=== PATIENT | female | born 1970 | race Caucasian/White ===

== ENCOUNTER 2017-02-07 05:51 | Day surgery (SDC) | payer OTHER ==
[2017-02-06 15:31] VITALS: BMI 29.0
--- NOTE | 2017-02-07 06:59 | HP ---
Admitting History and Physical - Admission History of Present Illness: patient is a 46 y/o female with a past medical history of bipolar disorder type 2, anxiety, thyroid CA (s/p thyroidectomy). patient presents for ect. She has received ECT in the past and her last ect was at [facility] yesterday as per patient. She reports an improvement in mood since starting ect. She does reports a recent suicide attemp in December 2016 and was hospitalized at [facility] then transferred to [place] on 01/11/17. She was discharged from [facility] on . She denies any recent illnesses and reports compliance with prescribed medications. History Source: Patient, Medical Record Limitations to Obtaining History: No Limitations - Past Medical History ...LMP: 01/23/17 - Smoking History Smoking history: Never smoked Have you smoked in the past 12 months: No - Alcohol/Substance Use Hx Alcohol Use: No - Social History Usual Living Arrangement: Yes: Alone, With Child Home Medications - Allergies Allergies/Adverse Reactions: Allergies Allergy/AdvReac Type Severity Reaction Status Date / Time Sulfa (Sulfonamide Allergy Verified 02/06/17 15:10 Antibiotics) - Home Medications Home Medications: Ambulatory Orders Clonazepam [KlonoPIN] 0.5 mg PO BID 02/06/17 Clonidine HCl 0.2 mg PO HS 02/06/17 Levothyroxine [Synthroid -] 125 mcg PO DAILY 02/06/17 Quetiapine Fumarate [Seroquel -] 200 mg PO TID 02/06/17 Venlafaxine HCl ER [Effexor Xr -] 75 mg PO DAILY 02/06/17 Family Disease History - Family Disease History Family Disease History: Other: Mother ( depressio) Review of Systems - Review of Systems Constitutional: reports: No Symptoms Eyes: reports: No Symptoms HENT: reports: No Symptoms Neck: reports: No Symptoms Cardiovascular: reports: No Symptoms Respiratory: reports: No Symptoms Gastrointestinal: reports: No Symptoms Genitourinary: reports: No Symptoms Breasts: reports: No Symptoms Reported Musculoskeletal: reports: No Symptoms Integumentary: reports: No Symptoms Neurological: reports: No Symptoms Endocrine: reports: No Symptoms Hematology/Lymphatic: reports: No Symptoms Psychiatric: reports: Depression Physical Examination Vital Signs: Vital Signs Temperature 98.3 F 02/07/17 06:36 Pulse Rate 68 02/07/17 06:36 Respiratory Rate 104 H 07/12/17 06:39 Blood Pressure O2 Sat by Pulse Oximetry (%) 96 02/07/17 06:39 Constitutional: Yes: Well Nourished, No Distress, Calm Eyes: Yes: WNL, Conjunctiva Clear, EOM Intact HENT: Yes: WNL, Atraumatic, Normocephalic Neck: Yes: WNL, Supple, Trachea Midline Cardiovascular: Yes: WNL, Regular Rate and Rhythm, S1, S2 Respiratory: Yes: WNL, Regular, CTA Bilaterally Gastrointestinal: Yes: WNL, Normal Bowel Sounds, Soft ...Rectal Exam: Yes: Deferred Renal/: Yes: WNL Musculoskeletal: Yes: WNL Extremities: Yes: WNL Edema: No Peripheral Pulses WNL: Yes Peripheral Pulses: Left Radial: 4+, Right Radial: 4+, Left Doralis Pedis: 3+, Right Dorsalis Pedis: 3+, Left Femoral: 3+, Right Femoral: 3+ Integumentary: Yes: WNL Neurological: Yes: WNL, Alert, Oriented ...Motor Strength: WNL Psychiatric: Yes: WNL, Alert, Oriented Labs: reviewed 01/13 Imaging - Results EKG: Report Reviewed, Other (nsr no ischemic changes) Assessment/Plan pt is a 46 y/o female that presents for ect, she has received ect in the past and denies any adverse reaction to anesthesia. labs and ekg reviewed pt is low risk for procedure informed consent, risks/benefits to be obtained by Dr Wagner
[2017-02-07] MEDS ORDERED: KETAMINE HCL 500 MG/10 ML VIAL ONE (08:29)
[2017-02-07 09:31] VITALS: TEMP 97.9
[2017-02-07 09:41] VITALS: BP 133/87; PULSE 74
== END 2017-02-07 09:45 | disposition home or self-care (01) ==
LOC: FECT 05:51
PROVIDERS: ATTEND Psychiatry & Neurology Psychiatry
PROC: GZB4ZZZ Other Electroconvulsive Therapy (ICD-10-PCS; principal; 2017-02-07 08:30)
DX: F33.2 Major depressive disorder, recurrent severe without psychotic features (principal)
CPT/HCPCS: 84703; 90870; 94760

== ENCOUNTER 2017-02-09 05:42 | Day surgery (SDC) | payer OTHER ==
[2017-02-09 06:54] VITALS: TEMP 98.1
[2017-02-09] MEDS ORDERED: KETAMINE HCL 500 MG/10 ML VIAL ONE (08:05)
[2017-02-09 10:02] VITALS: PULSE 82
[2017-02-09 10:03] VITALS: BP 124/74
== END 2017-02-09 09:55 | disposition home or self-care (01) ==
LOC: FECT 05:42
PROVIDERS: ATTEND Psychiatry & Neurology Psychiatry
PROC: GZB4ZZZ Other Electroconvulsive Therapy (ICD-10-PCS; principal; 2017-02-09 08:00)
DX: F33.2 Major depressive disorder, recurrent severe without psychotic features (principal)
CPT/HCPCS: 90870; 94760

== ENCOUNTER 2017-02-12 06:00 | Day surgery (SDC) | payer OTHER ==
[2017-02-07 15:19] VITALS: BMI 29.0
[2017-02-12] MEDS ORDERED: KETAMINE HCL 500 MG/10 ML VIAL ONE (07:44)
[2017-02-12 09:23] VITALS: PULSE 86; TEMP 98
[2017-02-12 09:29] VITALS: BP 130/89
== END 2017-02-12 09:30 | disposition home or self-care (01) ==
LOC: FECT 06:00
PROVIDERS: ATTEND Psychiatry & Neurology Psychiatry
PROC: GZB4ZZZ Other Electroconvulsive Therapy (ICD-10-PCS; principal; 2017-02-12 07:45)
DX: F33.2 Major depressive disorder, recurrent severe without psychotic features (principal)
CPT/HCPCS: 84703; 90870; 94760

== ENCOUNTER 2017-02-14 05:42 | Day surgery (SDC) | payer OTHER ==
[2017-02-09 11:09] VITALS: BMI 29.0
[2017-02-14] MEDS ORDERED: LACTATED RINGERS SOLUTION 1,000 ML IV SCH (07:15)
[2017-02-14] MEDS ORDERED: KETAMINE HCL 500 MG/10 ML VIAL ONE (07:49)
[2017-02-14 08:53] VITALS: PULSE 79; TEMP 98.1
[2017-02-14 09:21] VITALS: BP 121/84
== END 2017-02-14 09:20 | disposition home or self-care (01) ==
LOC: FECT 05:42
PROVIDERS: ATTEND Psychiatry & Neurology Psychiatry
PROC: GZB4ZZZ Other Electroconvulsive Therapy (ICD-10-PCS; principal; 2017-02-14 07:45)
DX: F33.2 Major depressive disorder, recurrent severe without psychotic features (principal)
CPT/HCPCS: 90870; 94760

== ENCOUNTER 2017-02-16 05:43 | Day surgery (SDC) | payer OTHER ==
[2017-02-14 10:11] VITALS: BMI 29.0
[2017-02-16] MEDS ORDERED: KETAMINE HCL 500 MG/10 ML VIAL ONE (07:33)
[2017-02-16] MEDS ORDERED: ACETAMINOPHEN 325 MG TABLET (FP) PO PRN (08:02)
[2017-02-16] MEDS ORDERED: ONDANSETRON 4 MG/2 ML VIAL IVPUSH PRN (08:02)
[2017-02-16] MEDS ORDERED: LACTATED RINGERS SOLUTION 1,000 ML IV SCH (08:15)
[2017-02-16 09:04] VITALS: TEMP 98.1
[2017-02-16 09:34] VITALS: BP 120/70; PULSE 81
== END 2017-02-16 09:25 | disposition home or self-care (01) ==
LOC: FECT 05:43
PROVIDERS: ATTEND Psychiatry & Neurology Psychiatry
PROC: GZB4ZZZ Other Electroconvulsive Therapy (ICD-10-PCS; principal; 2017-02-16 07:45)
DX: F33.2 Major depressive disorder, recurrent severe without psychotic features (principal)
CPT/HCPCS: 84703; 90870; 94760

== ENCOUNTER → 2017-02-20 | Day surgery (SDC) | payer OTHER ==
[2017-02-14 10:15] VITALS: BMI 29.0
[~2017-02-20] MED LIST: KETAMINE HCL 500 MG/10 ML VIAL ONE; LACTATED RINGERS SOLUTION 1,000 ML IV SCH
[2017-02-20 08:05] VITALS: TEMP 97.9
[2017-02-20 10:47] VITALS: BP 139/89; PULSE 81
== END | disposition home or self-care (01) ==
LOC: FECT 05:50
PROVIDERS: ATTEND Psychiatry & Neurology Psychiatry
PROC: GZB4ZZZ Other Electroconvulsive Therapy (ICD-10-PCS; principal; 2017-02-20 08:30)
DX: F33.2 Major depressive disorder, recurrent severe without psychotic features (principal)
CPT/HCPCS: 84703; 90870; 94760

== ENCOUNTER 2017-03-06 05:45 | Day surgery (SDC) | payer OTHER ==
[2017-02-15 12:32] VITALS: BMI 29.0
[2017-03-06 09:50] VITALS: BP 128/78; PULSE 76; TEMP 98
== END 2017-03-06 09:40 | disposition home or self-care (01) ==
LOC: FECT 05:45
PROVIDERS: ATTEND Psychiatry & Neurology Psychiatry
PROC: GZB4ZZZ Other Electroconvulsive Therapy (ICD-10-PCS; principal; 2017-03-06 08:30)
DX: F33.2 Major depressive disorder, recurrent severe without psychotic features (principal)
CPT/HCPCS: 84703; 90870; 94760

== ENCOUNTER 2017-04-16 05:44 | Day surgery (SDC) | payer OTHER ==
[2017-04-13 11:23] VITALS: BMI 29.0
--- NOTE | 2017-04-16 07:09 | HP ---
Admitting History and Physical - Admission History of Present Illness: patient is a 46 y/o female with a past medical history of bipolar disorder ( type 2), thyroid CA (s/p thyroidectomy), and anxiety. Patient presents for ect. She has received ect in the past and patient was recently admitted to [facility] [place] for 9 days due to worsening of depression and anxiety. She was recently discharged on April 14. She received ECT at [facility] her last treatment was on Thursday, April 13, 2017. Patient reports feeling well, she denies any suicidal or homicidal ideation, visual or auditory hallucinations. History Source: Patient Limitations to Obtaining History: No Limitations - Past Medical History ...LMP: 01/23/17 - Smoking History Smoking history: Never smoked Have you smoked in the past 12 months: No - Alcohol/Substance Use Hx Alcohol Use: No History of Substance Use: reports: None - Social History Usual Living Arrangement: Yes: With Spouse ADL: Independent History of Recent Travel: No Home Medications - Allergies Allergies/Adverse Reactions: Allergies Allergy/AdvReac Type Severity Reaction Status Date / Time Sulfa (Sulfonamide Allergy Intermediate RASH, Verified 03/09/17 10:50 Antibiotics) SWELLING - Home Medications Home Medications: Ambulatory Orders Clonazepam [KlonoPIN] 0.5 mg PO BID 02/06/17 Clonidine HCl 0.2 mg PO HS 02/06/17 Levothyroxine [Synthroid -] 125 mcg PO DAILY 02/06/17 Quetiapine Fumarate [Seroquel -] 200 mg PO BID #60 tab 02/14/17 Venlafaxine HCl ER [Effexor Xr -] 150 mg PO DAILY #30 cap.er.24h 02/14/17 Family Disease History - Family Disease History Family Disease History: Other: Mother Review of Systems - Review of Systems Constitutional: reports: No Symptoms Eyes: reports: No Symptoms HENT: reports: No Symptoms Neck: reports: No Symptoms Cardiovascular: reports: No Symptoms Respiratory: reports: No Symptoms Gastrointestinal: reports: No Symptoms Genitourinary: reports: No Symptoms Musculoskeletal: reports: No Symptoms Integumentary: reports: No Symptoms Neurological: reports: No Symptoms Endocrine: reports: No Symptoms Hematology/Lymphatic: reports: No Symptoms Psychiatric: reports: Anxiety Physical Examination Constitutional: Yes: Well Nourished, No Distress, Calm Eyes: Yes: WNL, Conjunctiva Clear, EOM Intact HENT: Yes: WNL, Atraumatic, Normocephalic Neck: Yes: WNL, Supple, Trachea Midline Cardiovascular: Yes: WNL, Regular Rate and Rhythm, S1, S2 Respiratory: Yes: WNL, Regular, CTA Bilaterally Gastrointestinal: Yes: WNL, Normal Bowel Sounds, Soft ...Rectal Exam: Yes: Deferred Renal/: Yes: WNL Breast(s): Yes: WNL Musculoskeletal: Yes: WNL Extremities: Yes: WNL Edema: No Peripheral Pulses WNL: Yes Peripheral Pulses: Left Radial: 4+, Right Radial: 4+, Left Doralis Pedis: 3+, Right Dorsalis Pedis: 3+, Left Femoral: 3+, Right Femoral: 3+ Integumentary: Yes: WNL Neurological: Yes: WNL, Alert, Oriented ...Motor Strength: WNL Psychiatric: Yes: WNL, Alert, Oriented Labs: reviewed 02/12 Imaging - Results EKG: Image Reviewed Assessment/Plan pt is a 46 y/o female that presents for ect, labs and ekg reviewed pt is medically optimized for procedure informed consent, risks/benefits to be obtained by Dr Wagner
[2017-04-16] MEDS ORDERED: LACTATED RINGERS SOLUTION 1,000 ML IV SCH (08:00)
[2017-04-16] MEDS ORDERED: KETAMINE HCL 500 MG/10 ML VIAL ONE (08:11)
[2017-04-16 09:37] VITALS: TEMP 98.1
[2017-04-16 10:19] VITALS: BP 134/86; PULSE 88
== END 2017-04-16 10:00 | disposition home or self-care (01) ==
LOC: FECT 05:44
PROVIDERS: ATTEND Psychiatry & Neurology Psychiatry
PROC: GZB4ZZZ Other Electroconvulsive Therapy (ICD-10-PCS; principal; 2017-04-16 08:15)
DX: F33.2 Major depressive disorder, recurrent severe without psychotic features (principal)
CPT/HCPCS: 84703; 90870; 94760

== ENCOUNTER 2017-04-19 05:40 | Day surgery (SDC) | payer OTHER ==
[2017-04-17 09:05] VITALS: BMI 29.0
[2017-04-19 06:14] VITALS: TEMP 97.8
[2017-04-19] MEDS ORDERED: KETAMINE HCL 500 MG/10 ML VIAL ONE (06:44)
[2017-04-19] MEDS ORDERED: ONDANSETRON 4 MG/2 ML VIAL IVPUSH PRN (07:08)
[2017-04-19] MEDS ORDERED: LACTATED RINGERS SOLUTION 1,000 ML IV SCH (07:15)
[2017-04-19 08:05] VITALS: BP 135/89; PULSE 89
== END 2017-04-19 08:00 | disposition home or self-care (01) ==
LOC: FECT 05:40
PROVIDERS: ATTEND Psychiatry & Neurology Psychiatry
PROC: GZB4ZZZ Other Electroconvulsive Therapy (ICD-10-PCS; principal; 2017-04-19 07:45)
DX: F33.2 Major depressive disorder, recurrent severe without psychotic features (principal)
CPT/HCPCS: 90870; 94760

== ENCOUNTER 2017-04-24 05:40 | Day surgery (SDC) | payer OTHER ==
[2017-04-17 10:32] VITALS: BMI 29.0
[2017-04-24 09:13] VITALS: TEMP 98.7
[2017-04-24 09:16] VITALS: BP 124/86; PULSE 87
== END 2017-04-24 09:10 | disposition home or self-care (01) ==
LOC: FECT 05:40
PROVIDERS: ATTEND Psychiatry & Neurology Psychiatry
PROC: GZB4ZZZ Other Electroconvulsive Therapy (ICD-10-PCS; principal; 2017-04-24 07:15)
DX: F33.2 Major depressive disorder, recurrent severe without psychotic features (principal)
CPT/HCPCS: 84703; 90870; 94760

== ENCOUNTER 2017-04-27 05:37 | Day surgery (SDC) | payer OTHER ==
[2017-04-17 10:49] VITALS: BMI 29.0
[2017-04-27 06:00] VITALS: TEMP 98
[2017-04-27] MEDS ORDERED: KETAMINE HCL 500 MG/10 ML VIAL ONE (07:01)
[2017-04-27 08:25] VITALS: BP 122/90; PULSE 86
[2017-04-27] MEDS ORDERED: ONDANSETRON 4 MG/2 ML VIAL IVPUSH PRN (08:40)
[2017-04-27] MEDS ORDERED: ACETAMINOPHEN 325 MG TABLET (FP) PO PRN (08:40)
[2017-04-27] MEDS ORDERED: LACTATED RINGERS SOLUTION 1,000 ML IV SCH (08:45)
== END 2017-04-27 08:27 | disposition home or self-care (01) ==
LOC: FECT 05:37
PROVIDERS: ATTEND Psychiatry & Neurology Psychiatry
PROC: GZB4ZZZ Other Electroconvulsive Therapy (ICD-10-PCS; principal; 2017-04-27 07:00)
DX: F33.2 Major depressive disorder, recurrent severe without psychotic features (principal)
CPT/HCPCS: 90870; 94760

== ENCOUNTER 2017-05-01 05:46 | Day surgery (SDC) | payer OTHER ==
[2017-04-30 10:51] VITALS: BMI 29.0
[2017-05-01] MEDS ORDERED: KETAMINE HCL 500 MG/10 ML VIAL ONE (06:57)
[2017-05-01 08:14] VITALS: BP 134/86; PULSE 81; TEMP 98
== END 2017-05-01 08:15 | disposition home or self-care (01) ==
LOC: FECT 05:46
PROVIDERS: ATTEND Psychiatry & Neurology Psychiatry
PROC: GZB4ZZZ Other Electroconvulsive Therapy (ICD-10-PCS; principal; 2017-05-01 08:15)
DX: F33.2 Major depressive disorder, recurrent severe without psychotic features (principal)
CPT/HCPCS: 84703; 90870; 94760

== ENCOUNTER 2017-05-03 05:42 | Day surgery (SDC) | payer OTHER ==
[2017-04-30 10:55] VITALS: BMI 29.0
[2017-05-03] MEDS ORDERED: KETAMINE HCL 500 MG/10 ML VIAL ONE (07:37)
[2017-05-03 08:58] VITALS: TEMP 98.9
[2017-05-03 09:36] VITALS: BP 122/82; PULSE 88
== END 2017-05-03 09:40 | disposition home or self-care (01) ==
LOC: FECT 05:42
PROVIDERS: ATTEND Psychiatry & Neurology Psychiatry
PROC: GZB4ZZZ Other Electroconvulsive Therapy (ICD-10-PCS; principal; 2017-05-03 08:00)
DX: F33.2 Major depressive disorder, recurrent severe without psychotic features (principal)
CPT/HCPCS: 90870; 94760

== ENCOUNTER 2017-05-08 05:37 | Day surgery (SDC) | payer OTHER ==
[2017-05-03 10:18] VITALS: BMI 29.0
[2017-05-08] MEDS ORDERED: KETAMINE HCL 500 MG/10 ML VIAL ONE (06:57)
[2017-05-08 08:04] VITALS: TEMP 98.6
[2017-05-08 08:28] VITALS: BP 135/85; PULSE 88
== END 2017-05-08 08:30 | disposition home or self-care (01) ==
LOC: FECT 05:37
PROVIDERS: ATTEND Psychiatry & Neurology Psychiatry
PROC: GZB4ZZZ Other Electroconvulsive Therapy (ICD-10-PCS; principal; 2017-05-08 07:15)
DX: F33.2 Major depressive disorder, recurrent severe without psychotic features (principal)
CPT/HCPCS: 84703; 90870; 94760

== ENCOUNTER 2017-05-11 05:48 | Day surgery (SDC) | payer OTHER ==
[2017-05-08 11:50] VITALS: BMI 29.0
[2017-05-11 06:24] VITALS: TEMP 98
[2017-05-11 08:35] VITALS: BP 133/83; PULSE 92
[2017-05-11] MEDS ORDERED: ONDANSETRON 4 MG/2 ML VIAL IVPUSH PRN (09:07)
[2017-05-11] MEDS ORDERED: ACETAMINOPHEN 325 MG TABLET (FP) PO PRN (09:07)
== END 2017-05-11 08:15 | disposition home or self-care (01) ==
LOC: FECT 05:48
PROVIDERS: ATTEND Psychiatry & Neurology Psychiatry
PROC: GZB4ZZZ Other Electroconvulsive Therapy (ICD-10-PCS; principal; 2017-05-11 08:15)
DX: F33.2 Major depressive disorder, recurrent severe without psychotic features (principal)
CPT/HCPCS: 90870; 94760

== ENCOUNTER 2017-05-15 05:42 | Day surgery (SDC) | payer OTHER ==
[2017-05-10 10:59] VITALS: BMI 29.0
[2017-05-15 06:33] VITALS: TEMP 97.9
[2017-05-15] MEDS ORDERED: KETAMINE HCL 500 MG/10 ML VIAL ONE (07:28)
[2017-05-15] MEDS ORDERED: ONDANSETRON 4 MG/2 ML VIAL IVPUSH PRN (07:46)
[2017-05-15] MEDS ORDERED: oxyCODONE HCL 5 MG TABLET PO PRN (07:46)
[2017-05-15] MEDS ORDERED: LACTATED RINGERS SOLUTION 1,000 ML IV SCH (08:00)
[2017-05-15 08:55] VITALS: BP 135/89; PULSE 92
--- NOTE | 2017-05-18 07:07 | HP ---
CHIEF COMPLAINT: Here for ECT HISTORY OF PRESENT ILLNESS: patient is a 46 y/o female with a past medical history of bipolar disorder ( type 2), thyroid CA (s/p thyroidectomy), and anxiety. Patient here for ECT. Pt was admitted to [place] in March for 9 days due to worsening of depression and anxiety and was discharged on April 14. Pt denies any suicidal or homicidal ideation, visual or auditory hallucinations., cp, sob, palpitations, abdominal pain,N/V/D. History Source: Patient Recent Travel: No PAST MEDICAL HISTORY: see above PAST SURGICAL HISTORY: thyroid CA (s/p thyroidectomy) Social History: Smoking:No Alcohol:No Drugs: No Family History: Allergies Sulfa (Sulfonamide Antibiotics) Allergy (Intermediate, Verified 05/18/17 06:55) RASH, SWELLING HOME MEDICATIONS: Home Medications Medication Instructions Recorded Clonidine HCl 0.2 mg PO HS 02/06/17 Levothyroxine [Synthroid -] 125 mcg PO DAILY 02/06/17 Clonazepam [Klonopin] 1 mg PO BID 04/16/17 Quetiapine Fumarate [Seroquel -] 200 mg PO TID 04/16/17 Venlafaxine HCl ER [Effexor Xr -] 300 mg PO DAILY 04/16/17 Atorvastatin Ca [Lipitor] 10 mg PO HS 05/08/17 REVIEW OF SYSTEMS CONSTITUTIONAL: Absent: fever, chills, diaphoresis, generalized weakness, malaise, loss of appetite, weight change HEENT: Absent: rhinorrhea, nasal congestion, throat pain, throat swelling, difficulty swallowing, mouth swelling, ear pain, eye pain, visual changes CARDIOVASCULAR: Absent: chest pain, syncope, palpitations, irregular heart rate, lightheadedness , peripheral edema RESPIRATORY: Absent: cough, shortness of breath, dyspnea with exertion, orthopnea, wheezing, stridor, hemoptysis GASTROINTESTINAL: Absent: abdominal pain, abdominal distension, nausea, vomiting, diarrhea, constipation, melena, hematochezia GENITOURINARY: Absent: dysuria, frequency, urgency, hesitancy, hematuria, flank pain, genital pain MUSCULOSKELETAL: Absent: myalgia, arthralgia, joint swelling, back pain, neck pain SKIN: Absent: rash, itching, pallor HEMATOLOGIC/IMMUNOLOGIC: Absent: easy bleeding, easy bruising, lymphadenopathy, frequent infections ENDOCRINE: Absent: unexplained weight gain, unexplained weight loss, heat intolerance, cold intolerance NEUROLOGIC: Absent: headache, focal weakness or paresthesias, dizziness, unsteady gait, seizure, mental status changes, bladder or bowel incontinence PSYCHIATRIC: Absent: anxiety, depression, suicidal or homicidal ideation, hallucinations. PHYSICAL EXAMINATION GENERAL: Awake, alert, and fully oriented, in no acute distress. HEAD: Normal with no signs of trauma. EYES: Pupils equal, round and reactive to light, extraocular movements intact, sclera anicteric, conjunctiva clear. No lid lag. EARS, NOSE, THROAT: Ears normal, nares patent, oropharynx clear without exudates. Moist mucous membranes. NECK: Normal range of motion, supple without lymphadenopathy, JVD, or masses. LUNGS: Breath sounds equal, clear to auscultation bilaterally. No wheezes, and no crackles. No accessory muscle use. HEART: Regular rate and rhythm, normal S1 and S2 without murmur, rub or gallop. ABDOMEN: Soft, nontender, not distended, normoactive bowel sounds, no guarding, no rebound, no masses. No hepatomegaly or splenomegaly. MUSCULOSKELETAL: Normal range of motion at all joints. No bony deformities or tenderness. No CVA tenderness. UPPER EXTREMITIES: 2+ pulses, warm, well-perfused. No cyanosis. No clubbing. No peripheral edema. LOWER EXTREMITIES: 2+ pulses, warm, well-perfused. No calf tenderness. No peripheral edema. NEUROLOGICAL: Cranial nerves II-XII intact. Normal speech. Normal gait. PSYCHIATRIC: Cooperative. Good eye contact. Appropriate mood and affect. SKIN: Warm, dry, normal turgor, no rashes or lesions noted, normal capillary refill. ASSESSMENT/PLAN: This is a 46 year old female with hx of bipolar disorder (type 2), thyroid CA (s/p thyroidectomy), and anxiety. Patient is here for ECT. EKG and labs reviewed, unremarkable. medically optimized for ECT. Consent to be obtained by . Visit type - Emergency Visit Emergency Visit: No - New Patient This patient is new to me today: Yes Date on this admission: 05/18/17 - Critical Care Critical Care patient: No Total Critical Care Time (in minutes): 35 Critical Care Statement: The care of this patient involved high complexity decision making to prevent further life threatening deterioration of the patient 's condition and/or to evaluate & treat vital organ system(s) failure or risk of failure.
== END 2017-05-15 08:55 | disposition home or self-care (01) ==
LOC: FECT 05:42
PROVIDERS: ATTEND Psychiatry & Neurology Psychiatry
PROC: GZB4ZZZ Other Electroconvulsive Therapy (ICD-10-PCS; principal; 2017-05-15 08:00)
DX: F33.2 Major depressive disorder, recurrent severe without psychotic features (principal)
CPT/HCPCS: 84703; 90870; 94760

== ENCOUNTER 2017-05-18 05:42 | Day surgery (SDC) | payer OTHER ==
[2017-05-15 07:59] VITALS: BMI 29.0
[2017-05-18 09:29] VITALS: TEMP 97.8
[2017-05-18 09:48] VITALS: BP 131/75; PULSE 95
== END 2017-05-18 09:51 | disposition home or self-care (01) ==
LOC: FECT 05:42
PROVIDERS: ATTEND Psychiatry & Neurology Psychiatry
PROC: GZB4ZZZ Other Electroconvulsive Therapy (ICD-10-PCS; principal; 2017-05-18 07:30)
DX: F33.2 Major depressive disorder, recurrent severe without psychotic features (principal)
CPT/HCPCS: 84703; 90870; 94760

== ENCOUNTER 2017-05-23 05:42 | Day surgery (SDC) | payer OTHER ==
[2017-05-23 06:08] VITALS: TEMP 97.6
[2017-05-23] MEDS ORDERED: LACTATED RINGERS SOLUTION 1,000 ML IV SCH (08:30)
[2017-05-23 08:44] VITALS: BP 130/84; PULSE 97
== END 2017-05-23 08:45 | disposition home or self-care (01) ==
LOC: FECT 05:42
PROVIDERS: ATTEND Psychiatry & Neurology Psychiatry
PROC: GZB4ZZZ Other Electroconvulsive Therapy (ICD-10-PCS; principal; 2017-05-23 07:30)
DX: F33.2 Major depressive disorder, recurrent severe without psychotic features (principal)
CPT/HCPCS: 84703; 90870; 94760

== ENCOUNTER 2017-05-29 05:43 | Day surgery (SDC) | payer OTHER ==
[2017-05-28 07:26] VITALS: BMI 29.0
[2017-05-29 08:58] VITALS: TEMP 98.9
[2017-05-29 09:25] VITALS: BP 139/89; PULSE 88
== END 2017-05-29 09:25 | disposition home or self-care (01) ==
LOC: FECT 05:43
PROVIDERS: ATTEND Psychiatry & Neurology Psychiatry
PROC: GZB4ZZZ Other Electroconvulsive Therapy (ICD-10-PCS; principal; 2017-05-29 07:45)
DX: F33.2 Major depressive disorder, recurrent severe without psychotic features (principal)
CPT/HCPCS: 84703; 90870; 94760

== ENCOUNTER 2017-06-12 05:42 | Day surgery (SDC) | payer OTHER ==
[2017-06-12 06:35] VITALS: BMI 29.0
[2017-06-12] MEDS ORDERED: KETAMINE HCL 500 MG/10 ML VIAL ONE (07:25)
[2017-06-12 08:25] VITALS: TEMP 97.9
[2017-06-12 08:49] VITALS: BP 137/87; PULSE 93
== END 2017-06-12 09:00 | disposition home or self-care (01) ==
LOC: FECT 05:42
PROVIDERS: ATTEND Psychiatry & Neurology Psychiatry
PROC: GZB4ZZZ Other Electroconvulsive Therapy (ICD-10-PCS; principal; 2017-06-12 08:00)
DX: F33.2 Major depressive disorder, recurrent severe without psychotic features (principal)
CPT/HCPCS: 84703; 90870; 94760

== ENCOUNTER 2017-06-19 05:43 | Day surgery (SDC) | payer OTHER ==
[2017-06-19 07:00] VITALS: BMI 29.9
--- NOTE | 2017-06-19 07:13 | HP ---
Admitting History and Physical - Admission History of Present Illness: patient is a 46 y/o female with a past medical history of hyperlipidemia, bipolar disorder (type 2), thyroid Ca (s/p thyroidectomy) and anxiety. Patient presents for ect, her last ect was 06/12/17. patient reports feeling well, she reports an improvement in depressive symptoms since starting ect. She denies any recent illnesses or hospitalizations. Patient denies any suicidal or homicidal ideation, visual or auditory hallucinations. History Source: Patient Limitations to Obtaining History: No Limitations - Past Medical History ...LMP: 05/10/17 - Smoking History Smoking history: Never smoked Have you smoked in the past 12 months: No - Alcohol/Substance Use Hx Alcohol Use: No History of Substance Use: reports: None - Social History Usual Living Arrangement: Yes: With Spouse ADL: Independent History of Recent Travel: No Home Medications - Allergies Allergies/Adverse Reactions: Allergies Allergy/AdvReac Type Severity Reaction Status Date / Time Sulfa (Sulfonamide Allergy Intermediate RASH, Verified 05/18/17 07:11 Antibiotics) SWELLING - Home Medications Home Medications: Ambulatory Orders Clonidine HCl 0.2 mg PO HS 02/06/17 Levothyroxine [Synthroid -] 125 mcg PO DAILY 02/06/17 Clonazepam [Klonopin] 1 mg PO BID 04/16/17 Quetiapine Fumarate [Seroquel -] 200 mg PO TID 04/16/17 Venlafaxine HCl ER [Effexor Xr -] 300 mg PO DAILY 04/16/17 Atorvastatin Ca [Lipitor] 10 mg PO HS 05/08/17 Family Disease History - Family Disease History Family Disease History: Other: Mother Review of Systems - Review of Systems Constitutional: reports: No Symptoms Eyes: reports: No Symptoms HENT: reports: No Symptoms Neck: reports: No Symptoms Cardiovascular: reports: No Symptoms Respiratory: reports: No Symptoms Gastrointestinal: reports: No Symptoms Genitourinary: reports: No Symptoms Musculoskeletal: reports: No Symptoms Integumentary: reports: No Symptoms Neurological: reports: No Symptoms Endocrine: reports: No Symptoms Hematology/Lymphatic: reports: No Symptoms Psychiatric: reports: No Symptoms Physical Examination Vital Signs: Vital Signs Temperature 98.1 F 06/19/17 06:50 Pulse Rate 87 06/19/17 06:50 Respiratory Rate 16 06/19/17 06:50 Blood Pressure 116/78 06/19/17 06:50 O2 Sat by Pulse Oximetry (%) 98 06/19/17 06:50 Constitutional: Yes: Well Nourished, No Distress, Calm Eyes: Yes: WNL, Conjunctiva Clear, EOM Intact HENT: Yes: WNL, Atraumatic, Normocephalic Neck: Yes: WNL, Supple, Trachea Midline Cardiovascular: Yes: WNL, Regular Rate and Rhythm Respiratory: Yes: WNL, Regular, CTA Bilaterally Gastrointestinal: Yes: WNL, Normal Bowel Sounds, Soft ...Rectal Exam: Yes: Deferred Renal/: Yes: WNL Breast(s): Yes: WNL Musculoskeletal: Yes: WNL Extremities: Yes: WNL Edema: No Peripheral Pulses WNL: Yes Peripheral Pulses: Left Radial: 4+, Right Radial: 4+, Left Doralis Pedis: 3+, Right Dorsalis Pedis: 3+, Left Femoral: 3+, Right Femoral: 3+ Integumentary: Yes: WNL Neurological: Yes: WNL, Alert, Oriented ...Motor Strength: WNL Psychiatric: Yes: WNL, Alert, Oriented Labs: reviewed 01/13 Imaging - Results EKG: Image Reviewed, Other (nsr) Assessment/Plan patient is a 46 y/o female that presents for ect, labs and ekg reviewed patient is medically optimized for procedure informed consent, risks/benefits to be obtained by Dr Wagner
[2017-06-19] MEDS ORDERED: KETAMINE HCL 500 MG/10 ML VIAL ONE (07:56)
[2017-06-19 09:10] VITALS: TEMP 97.1
[2017-06-19 09:18] VITALS: BP 127/85; PULSE 89
== END 2017-06-19 09:30 | disposition home or self-care (01) ==
LOC: FECT 05:43
PROVIDERS: ATTEND Psychiatry & Neurology Psychiatry
PROC: GZB4ZZZ Other Electroconvulsive Therapy (ICD-10-PCS; principal; 2017-06-19 07:30)
DX: F33.2 Major depressive disorder, recurrent severe without psychotic features (principal)
CPT/HCPCS: 84703; 90870; 94760

== ENCOUNTER 2017-06-26 05:43 | Day surgery (SDC) | payer OTHER ==
[2017-06-20 11:22] VITALS: BMI 29.7
[2017-06-26] MEDS ORDERED: KETAMINE HCL 500 MG/10 ML VIAL ONE (07:04)
[2017-06-26 08:15] VITALS: TEMP 98.1
[2017-06-26 08:58] VITALS: BP 140/84; PULSE 89
== END 2017-06-26 08:40 | disposition home or self-care (01) ==
LOC: FECT 05:43
PROVIDERS: ATTEND Psychiatry & Neurology Psychiatry
PROC: GZB4ZZZ Other Electroconvulsive Therapy (ICD-10-PCS; principal; 2017-06-26 08:00)
DX: F33.2 Major depressive disorder, recurrent severe without psychotic features (principal)
CPT/HCPCS: 84703; 90870; 94760

== ENCOUNTER 2017-07-03 05:41 | Day surgery (SDC) | payer OTHER ==
[2017-07-03 06:31] VITALS: BMI 29.7
[2017-07-03 08:59] VITALS: TEMP 98.7
[2017-07-03 09:00] VITALS: BP 131/89; PULSE 88
[2017-07-03] MEDS ORDERED: ONDANSETRON 4 MG/2 ML VIAL IVPUSH PRN (11:36)
[2017-07-03] MEDS ORDERED: LACTATED RINGERS SOLUTION 1,000 ML IV SCH (11:45)
== END 2017-07-03 09:00 | disposition home or self-care (01) ==
LOC: FECT 05:41
PROVIDERS: ATTEND Psychiatry & Neurology Psychiatry
PROC: GZB4ZZZ Other Electroconvulsive Therapy (ICD-10-PCS; principal; 2017-07-03 07:45)
DX: F33.2 Major depressive disorder, recurrent severe without psychotic features (principal)
CPT/HCPCS: 84703; 90870; 94760

== ENCOUNTER 2017-07-10 05:46 | Day surgery (SDC) | payer OTHER ==
[2017-07-06 11:24] VITALS: BMI 29.7
[2017-07-10 06:18] VITALS: TEMP 97.8
[2017-07-10 07:07] LABS: MCH 29.4 pg (25.7-33.7); MCHC 32.6 g/dl (32.0-36.0); MEAN CELL VOLUME 90.1 fl (80-96); MEAN PLT VOLUME 7.5 fl (7.5-11.1); PLATELET COUNT 361 K/MM3 (134-434); RDW 11.4 % (11.6-15.6); WHITE BLOOD COUNT 3.9 K/mm3 (4.0-10.8)
[2017-07-10 07:16] LABS: ANION GAP 5 (8-16); CALCIUM 9.5 mg/dl (8.4-10.2); CO2 30 mmol/L (22-28); CREATININE 1.1 mg/dl (0.6-1.3); GLUCOSE,RANDOM 99 mg/dl (74-106)
[2017-07-10 08:42] VITALS: BP 131/81; PULSE 88
--- NOTE | 2017-07-10 15:18 | EKG ---
Test Reason : Blood Pressure : / mmHG Vent. Rate : 086 BPM Atrial Rate : 086 BPM P-R Int : 160 ms QRS Dur : 080 ms QT Int : 364 ms P-R-T Axes : 068 053 051 degrees QTc Int : 435 ms NORMAL SINUS RHYTHM LOW VOLTAGE QRS BORDERLINE ECG NO PREVIOUS ECGS AVAILABLE Confirmed by MD MADELAINE, JANE ([id number]) on 07/10/2017 3:18:36 PM Referred By: Del Wagner Confirmed By:JANE BURKETT MD
== END 2017-07-10 08:40 | disposition home or self-care (01) ==
LOC: FECT 05:46
PROVIDERS: ATTEND Psychiatry & Neurology Psychiatry
PROC: GZB4ZZZ Other Electroconvulsive Therapy (ICD-10-PCS; principal; 2017-07-10 08:15)
DX: F33.2 Major depressive disorder, recurrent severe without psychotic features (principal)
CPT/HCPCS: 36415; 80048; 84703; 85027; 90870; 93005; 94760

== ENCOUNTER 2017-07-19 06:01 | Day surgery (SDC) | payer OTHER ==
[2017-07-19 06:12] VITALS: BMI 29.7
[2017-07-19] MEDS ORDERED: KETAMINE HCL 500 MG/10 ML VIAL ONE (06:54)
[2017-07-19 08:00] VITALS: TEMP 98.2
[2017-07-19 08:45] VITALS: BP 125/82; PULSE 96
[2017-07-19] MEDS ORDERED: ONDANSETRON 4 MG/2 ML VIAL IVPUSH PRN (09:32)
[2017-07-19] MEDS ORDERED: PROMETHAZINE HCL 25 MG/1 ML VIAL IVPUSH PRN (09:32)
[2017-07-19] MEDS ORDERED: LACTATED RINGERS SOLUTION 1,000 ML IV SCH (09:45)
[2017-07-19] MEDS ORDERED: PROMETHAZINE HCL 25 MG/1 ML VIAL IVPB PRN (15:00)
== END 2017-07-19 08:49 | disposition home or self-care (01) ==
LOC: FECT 06:01
PROVIDERS: ATTEND Psychiatry & Neurology Psychiatry
PROC: GZB4ZZZ Other Electroconvulsive Therapy (ICD-10-PCS; principal; 2017-07-19 07:00)
DX: F33.2 Major depressive disorder, recurrent severe without psychotic features (principal)
CPT/HCPCS: 84703; 90870; 94760

== ENCOUNTER 2017-07-26 05:46 | Day surgery (SDC) | payer OTHER ==
[2017-07-25 13:59] VITALS: BMI 29.7
--- NOTE | 2017-07-26 07:37 | HP ---
Admitting History and Physical - Admission History of Present Illness: 17patient is a 46 y/o female with a past medical history of bipolar disorder( type 2), hyperlipidemia, thyroid CA (s/p thyroidectomy) and anxiety. Patient presents for ect, her last ect was 07/19/17. She reports feeling much improvement in depressive symptoms since starting ect. She denies any changes to medications. Patient denies any recent illnesses or hospitalizations. Patient denies any suicidal or homicidal ideation, visual or auditory hallucinations. History Source: Patient Limitations to Obtaining History: No Limitations - Past Medical History Cardiovascular: Yes: Hyperlipdemia ...LMP: 05/10/17 Endocrine: Yes: Hypothyroidism - Smoking History Smoking history: Never smoked Have you smoked in the past 12 months: No - Alcohol/Substance Use Hx Alcohol Use: No History of Substance Use: reports: None - Social History Usual Living Arrangement: Yes: With Significant Other ADL: Independent History of Recent Travel: No Home Medications - Allergies Allergies/Adverse Reactions: Allergies Allergy/AdvReac Type Severity Reaction Status Date / Time Sulfa (Sulfonamide Allergy Intermediate RASH, Verified 05/18/17 07:11 Antibiotics) SWELLING - Home Medications Home Medications: Ambulatory Orders Clonidine HCl 0.2 mg PO HS 02/06/17 Levothyroxine [Synthroid -] 125 mcg PO DAILY 02/06/17 Clonazepam [Klonopin] 1 mg PO BID 04/16/17 Quetiapine Fumarate [Seroquel -] 200 mg PO TID 04/16/17 Venlafaxine HCl ER [Effexor Xr -] 300 mg PO DAILY 04/16/17 Family Disease History - Family Disease History Family Disease History: Other: Mother Review of Systems - Review of Systems Constitutional: reports: No Symptoms Eyes: reports: No Symptoms HENT: reports: No Symptoms Neck: reports: No Symptoms Cardiovascular: reports: No Symptoms Respiratory: reports: No Symptoms Gastrointestinal: reports: No Symptoms Genitourinary: reports: No Symptoms Musculoskeletal: reports: No Symptoms Integumentary: reports: No Symptoms Neurological: reports: No Symptoms Endocrine: reports: No Symptoms Hematology/Lymphatic: reports: No Symptoms Psychiatric: reports: No Symptoms Physical Examination Constitutional: Yes: Well Nourished, No Distress, Calm Eyes: Yes: WNL, Conjunctiva Clear, EOM Intact HENT: Yes: WNL, Atraumatic, Normocephalic Neck: Yes: WNL, Supple, Trachea Midline Cardiovascular: Yes: WNL, Regular Rate and Rhythm, S1, S2 Respiratory: Yes: WNL, Regular, CTA Bilaterally Gastrointestinal: Yes: WNL, Normal Bowel Sounds, Soft Renal/: Yes: WNL Breast(s): Yes: WNL Musculoskeletal: Yes: WNL Extremities: Yes: WNL Edema: No Peripheral Pulses WNL: Yes Peripheral Pulses: Left Radial: 4+, Right Radial: 4+, Left Doralis Pedis: 3+, Right Dorsalis Pedis: 3+, Left Femoral: 3+, Right Femoral: 3+ Integumentary: Yes: WNL Neurological: Yes: WNL, Alert, Oriented ...Motor Strength: WNL Psychiatric: Yes: WNL, Alert, Oriented Labs: reviwed 07/15 Imaging - Results EKG: Image Reviewed, Other (nsr) Assessment/Plan patient is a 46 y/o female that presents for ect, labs and ekg reviewed patient is medically optimized for procedure informed consent, risks/benefits to be obtained by Dr Wagner.
[2017-07-26] MEDS ORDERED: KETAMINE HCL 500 MG/10 ML VIAL ONE (07:55)
[2017-07-26 09:22] VITALS: PULSE 88; TEMP 98.1
[2017-07-26 09:33] VITALS: BP 142/80
== END 2017-07-26 09:45 | disposition home or self-care (01) ==
LOC: FECT 05:46
PROVIDERS: ATTEND Psychiatry & Neurology Psychiatry
PROC: GZB4ZZZ Other Electroconvulsive Therapy (ICD-10-PCS; principal; 2017-07-26 07:45)
DX: F33.2 Major depressive disorder, recurrent severe without psychotic features (principal)
CPT/HCPCS: 84703; 90870; 94760

== ENCOUNTER 2017-08-09 05:41 | Day surgery (SDC) | payer OTHER ==
[2017-08-09 06:14] VITALS: BMI 29.7
[2017-08-09 07:48] VITALS: TEMP 97.5
[2017-08-09 08:10] VITALS: BP 126/79; PULSE 96
== END 2017-08-09 08:21 | disposition home or self-care (01) ==
LOC: FECT 05:41
PROVIDERS: ATTEND Psychiatry & Neurology Psychiatry
PROC: GZB4ZZZ Other Electroconvulsive Therapy (ICD-10-PCS; principal; 2017-08-09 07:45)
DX: F33.2 Major depressive disorder, recurrent severe without psychotic features (principal)
CPT/HCPCS: 84703; 90870; 94760

== ENCOUNTER 2017-08-23 05:37 | Day surgery (SDC) | payer OTHER ==
[2017-08-23 06:52] VITALS: TEMP 98.2; BMI 30.3
[2017-08-23 09:17] VITALS: BP 129/89; PULSE 92
== END 2017-08-23 09:05 | disposition home or self-care (01) ==
LOC: FECT 05:37
PROVIDERS: ATTEND Psychiatry & Neurology Psychiatry
PROC: GZB4ZZZ Other Electroconvulsive Therapy (ICD-10-PCS; principal; 2017-08-23 07:45)
DX: F33.2 Major depressive disorder, recurrent severe without psychotic features (principal)
CPT/HCPCS: 84703; 90870; 94760

== ENCOUNTER 2017-09-06 05:40 | Day surgery (SDC) | payer OTHER ==
[2017-08-30 13:21] VITALS: BMI 30.2
--- NOTE | 2017-09-06 07:05 | HP ---
Admitting History and Physical - Admission History of Present Illness: patient is a 47 y/o female with a past medical history of bipolar disorder ( type 2), hyperlipidemia, thyroid CA (s/p thyroidectomy) and anxiety. Patient presents for ect, her last ect was 08/23/17. Patient reports feeling much improved since starting ect. She denies any changes to medications. patient denies any illnesses or hospitalizations. patient denies any suicidal or homicidal ideation, visual or auditory hallucinations. Limitations to Obtaining History: No Limitations - Past Medical History Cardiovascular: Yes: Hyperlipdemia ...LMP: 08/14/17 Endocrine: Yes: Hypothyroidism - Smoking History Smoking history: Never smoked Have you smoked in the past 12 months: No - Alcohol/Substance Use Hx Alcohol Use: Yes (RARE) History of Substance Use: reports: None - Social History Usual Living Arrangement: Yes: With Parent ADL: Independent History of Recent Travel: No Home Medications - Allergies Allergies/Adverse Reactions: Allergies Allergy/AdvReac Type Severity Reaction Status Date / Time Sulfa (Sulfonamide Allergy Intermediate RASH, Verified 05/18/17 07:11 Antibiotics) SWELLING - Home Medications Home Medications: Ambulatory Orders Clonidine HCl 0.2 mg PO HS 02/06/17 Levothyroxine [Synthroid -] 125 mcg PO DAILY 02/06/17 Clonazepam [Klonopin] 1 mg PO BID 04/16/17 Quetiapine Fumarate [Seroquel -] 200 mg PO TID 04/16/17 Venlafaxine HCl ER [Effexor Xr -] 300 mg PO DAILY 04/16/17 Family Disease History - Family Disease History Family Disease History: Other: Mother Review of Systems - Review of Systems Constitutional: reports: No Symptoms Eyes: reports: No Symptoms HENT: reports: No Symptoms Neck: reports: No Symptoms Cardiovascular: reports: No Symptoms Respiratory: reports: No Symptoms Gastrointestinal: reports: No Symptoms Genitourinary: reports: No Symptoms Musculoskeletal: reports: No Symptoms Integumentary: reports: No Symptoms Neurological: reports: No Symptoms Endocrine: reports: No Symptoms Hematology/Lymphatic: reports: No Symptoms Psychiatric: reports: No Symptoms Physical Examination Vital Signs: Vital Signs Temperature 97.8 F 09/06/17 06:12 Pulse Rate 81 09/06/17 06:12 Respiratory Rate 18 09/06/17 06:12 Blood Pressure 123/76 09/06/17 06:12 O2 Sat by Pulse Oximetry (%) 99 09/06/17 06:12 Constitutional: Yes: Well Nourished, No Distress, Calm Eyes: Yes: WNL, Conjunctiva Clear, EOM Intact HENT: Yes: WNL, Atraumatic, Normocephalic Neck: Yes: WNL, Supple, Trachea Midline Cardiovascular: Yes: WNL, Regular Rate and Rhythm, S1, S2 Respiratory: Yes: WNL, Regular, CTA Bilaterally Gastrointestinal: Yes: WNL, Normal Bowel Sounds ...Rectal Exam: Yes: Deferred Renal/: Yes: WNL Breast(s): Yes: WNL Musculoskeletal: Yes: WNL Extremities: Yes: WNL Edema: No Peripheral Pulses WNL: Yes Peripheral Pulses: Left Radial: 4+, Right Radial: 4+, Left Doralis Pedis: 3+, Right Dorsalis Pedis: 3+, Left Femoral: 3+, Right Femoral: 3+ Integumentary: Yes: WNL Neurological: Yes: WNL, Alert, Oriented ...Motor Strength: WNL Psychiatric: Yes: WNL, Alert, Oriented Labs: 07/10/17 Imaging - Results EKG: Image Reviewed, Other (nsr) Assessment/Plan patient is a 47 y/o female that presents for ect, labs and ekg reviewed patient is medically optimized for procedure informed consent, risks/benefits to be obtained by Dr Wagner
[2017-09-06] MEDS ORDERED: ACETAMINOPHEN 325 MG TABLET (FP) PO PRN (07:12)
[2017-09-06] MEDS ORDERED: KETAMINE HCL 500 MG/10 ML VIAL ONE (07:20)
[2017-09-06 08:40] VITALS: TEMP 98.2
[2017-09-06 08:48] VITALS: BP 123/81; PULSE 91
== END 2017-09-06 08:50 | disposition home or self-care (01) ==
LOC: FECT 05:40
PROVIDERS: ATTEND Psychiatry & Neurology Psychiatry
PROC: GZB4ZZZ Other Electroconvulsive Therapy (ICD-10-PCS; principal; 2017-09-06 07:30)
DX: F33.2 Major depressive disorder, recurrent severe without psychotic features (principal)
CPT/HCPCS: 84703; 90870; 94760

== ENCOUNTER 2017-09-20 05:48 | Day surgery (SDC) | payer OTHER ==
[2017-09-10 11:53] VITALS: BMI 30.2
[2017-09-20 06:15] VITALS: TEMP 97.8
[2017-09-20 08:14] VITALS: BP 133/88; PULSE 100
== END 2017-09-20 08:15 | disposition home or self-care (01) ==
LOC: FECT 05:48
PROVIDERS: ATTEND Psychiatry & Neurology Psychiatry
PROC: GZB4ZZZ Other Electroconvulsive Therapy (ICD-10-PCS; principal; 2017-09-20 07:45)
DX: F33.2 Major depressive disorder, recurrent severe without psychotic features (principal)
CPT/HCPCS: 84703